=== PATIENT | female | born 1955 | race Caucasian/White ===

== ENCOUNTER 2016-09-30 20:35 | Emergency (ER) | payer MEDICARE ==
[~2016-09-30] VITALS: Ht 147.3 cm; Wt 97.0 kg
[2016-09-30] MEDS ORDERED: ONDANSETRON 2MG/ML, 2ML IVPush ONE (21:30)
[2016-09-30] MEDS ORDERED: SODIUM CHLORIDE 0.9% 1,000ML IVBOLUS ONE (21:30)
[2016-09-30] MEDS ORDERED: MORPHINE SULFATE 4 MG/ML, 1ML ONE ×2 (21:44→22:43)
[2016-09-30] MEDS ORDERED: ONDANSETRON 2MG/ML, 2ML ONE (21:44)
[2016-09-30] MEDS: MORPHINE SULFATE 4 MG/ML, 1ML IVPush PRN ×2 (21:54→22:46)
[2016-09-30 21:59] LABS: PATH.CAST-FLAG NOT PRESENT; SPERM-FLAG NOT PRESENT; SRC-FLAG NOT PRESENT; XTAL-FLAG NOT PRESENT; YLC-FLAG NOT PRESENT
[2016-09-30 22:04] LABS: ASPARTATE AMINO TRANSFERASE 37 U/L (15-37); BLOOD UREA NITROGEN 21 mg/dL (7-18)
[2016-09-30 22:10] LABS: IS PT STATUS REG ER OR PRE ER? YES
[2016-09-30] MEDS ORDERED: SUMA50TA4 PO (22:24)
[2016-09-30] MEDS ORDERED: SUVO20TA PO (22:24)
[2016-09-30] MEDS ORDERED: AMLO10TA2 PO (22:24)
[2016-09-30] MEDS ORDERED: CLON0.2T PO (22:24)
[2016-09-30] MEDS ORDERED: OXYC5CAP4 PO (22:24)
[2016-09-30] MEDS ORDERED: ZOLP10TA5 PO (22:24)
[2016-09-30] MEDS ORDERED: TIZA4CAP PO (22:24)
[2016-09-30] MEDS ORDERED: NAPR500T3 PO (22:24)
[2016-09-30] MEDS ORDERED: POTA20TA89 PO (22:24)
[2016-09-30] MEDS ORDERED: ATEN100T PO (22:24)
[2016-09-30] MEDS ORDERED: DULO30CA2 PO (22:24)
[2016-09-30] MEDS ORDERED: BENA40TA2 PO (22:24)
[2016-09-30 22:47] LABS: HEMOGLOBIN 12.5 g/dL (11.7-16.4)
[2016-09-30 22:49] LABS: LARGE PLATELETS 1+
[2016-09-30 23:33] VITALS: BP 141/77
== END 2016-09-30 23:35 | disposition home or self-care (01) ==
LOC: ED 23:29
DX: N39.0 Urinary tract infection, site not specified (principal); N13.2 Hydronephrosis with renal and ureteral calculous obstruction; I10 Essential (primary) hypertension; G43.909 Migraine, unspecified, not intractable, without status migrainosus
CPT/HCPCS: 36415; 71010; 74176; 80053; 81001; 83690; 84484; 85025; 87086; 93005; 96361; 96374; 96375; 96376; 99285; J2405; J7030

== ENCOUNTER 2018-05-17 14:40 | Emergency (ER) | payer MEDICARE ==
[~2018-05-17] VITALS: Ht 147.3 cm; Wt 88.0 kg
[~2018-05-17 14:40] MED LIST: AMLO10TA6 PO; ATEN100T PO; BENA40TA3 PO; CLON0.2T PO; DULO30CA2 PO; NAPR-685 PO; OXYC5CAP2 PO; POTA20TA89 PO; SUMA50TA4 PO; SUVO20TA PO; TIZA4CAP PO; ZOLP10TA5 PO
[2018-05-17 14:50] VITALS: BP 122/68
[2018-05-17] MEDS ORDERED: METHYLNALTREXONE 12 MG/0.6 ML SQ ONE ×2 (16:00→16:27)
== END 2018-05-17 16:47 | disposition left against medical advice (07) ==
LOC: ED 16:39
DX: K59.00 Constipation, unspecified (principal); I10 Essential (primary) hypertension
CPT/HCPCS: 74021; 96372; 99283

== ENCOUNTER 2018-09-07 12:41 | Emergency (ER) | payer MEDICARE ==
[~2018-09-07] VITALS: Ht 154.9 cm; Wt 95.0 kg
[~2018-09-07 12:41] MED LIST changes: -AMLO10TA6 PO; +AMLO10TA8 PO
[2018-09-07] MEDS ORDERED: MECLIZINE CHEWABLE 25 MG TAB PO ONE (15:30)
[2018-09-07] MEDS ORDERED: MECLIZINE CHEWABLE 25 MG TAB ONE (15:34)
--- NOTE | 2018-09-07 15:35 | NUR ---
ASSUMED CAR EOF PT FROM LOBBY AT THIS TOME. PT C/O DIZZINESS WORSE WHEN SHE STAND S AND ALSO JAW PAIN THAT RADIATED TO HER CHEST AT 10 AM THAT HAS RESOLVED SINC EPT HAS BEEN IN THE ROOM. PT ON MONITOR. PT MEDICATED PER MD ORDER. DR. LEWIS AWARE OF JAW PAIN RADIATING TO HER CHEST.
[2018-09-07] MEDS ORDERED: XANAX PO (15:42)
[2018-09-07] MEDS ORDERED: METHADONE PO (15:44)
--- NOTE | 2018-09-07 17:17 | NUR ---
PT. WAS GIVEN DISCHARGE INSTRUCTIONS WITH UNDERSTANDING VERBALIZED ALONG WITH WILLINGNESS TO COMPLY. PT. STATES SHE FEELS BETTER BUT EXPRESSED DISSATISFACTION WITH DR. LEWIS. CHRIS COUGHLIN ASKED THE PT. IF SHE HAD ANY FURTHER NEEDS BEFORE DISCHARGE. INSTRUCTIONS WERE DISCUSSED AT LENGTH WITH UNDERSTANDING VERBALIZED. PT. WAS ASSISTED TO THE DISCHARGE DESK THEN TAKEN TO HER CAR.
[2018-09-07 17:21] VITALS: BP 140/77
== END 2018-09-07 17:23 | disposition home or self-care (01) ==
LOC: ED 15:18
DX: R42 Dizziness and giddiness (principal); I10 Essential (primary) hypertension; B85.2 Pediculosis, unspecified
CPT/HCPCS: 93005; 99283